=== PATIENT | female | born 1935 | race Caucasian/White ===

== ENCOUNTER 2022-10-03 08:09 | Outpatient (CLI) | payer MEDICARE | END 2022-10-03 23:59 | disposition critical access hospital (66) | LOC: EMS 08:09 | DX: M25.551 Pain in right hip (principal); W06.XXXA Fall from bed, initial encounter; Y92.092 Bedroom in other non-institutional residence as the place of occurrence of the external cause; Z79.01 Long term (current) use of anticoagulants | CPT/HCPCS: A0425; A0429 ==

== ENCOUNTER 2022-10-03 08:26 | Emergency (ER) | payer MEDICARE, OTHER ==
--- NOTE | 2022-10-03 08:47 | ED Physician Documentation ---
History of Present Illness - Stated complaint Stated Complaint: GLF - History obtained from History obtained from: Patient, EMS - Additonal information Additional information: The patient is brought to the emergency department by EMS for chief complaint of ground-level fall and possible right hip pain. She has severe dementia and lives at home place and medics report that staff stated the patient Had an unwitnessed ground-level fall. She had last been seen 15 minutes before, so was not down very long. Medics state the patient seemed to indicate that her right hip might hurt, though the patient denies any pain anywhere right now. Medics also stated they could not get the patient to straighten her leg out so they could not tell if it was shortened or rotated. They have not noticed any head trauma and its not clear whether the patient hit her head or not. She is not anticoagulated. The patient is conversant but difficult to keep on topic. She is apparently still ambulatory according to medics. No other complaints at this time. PD PAST MEDICAL HISTORY - Present Medications Home Medications: Ambulatory Orders Medication Instructions Recorded Confirmed Acetaminophen [Aphen] 325 mg PO TID 10/03/22 10/03/22 Atorvastatin [Lipitor] 20 mg ORAL DAILY 10/03/22 10/03/22 Cyanocobalamin (Vitamin B-12) 1,000 mcg SL DAILY 10/03/22 10/03/22 [Vitamin B-12 (1000 mcg sublingual)] Metoprolol Tartrate [Lopressor] 12.5 mg PO DAILY 10/03/22 10/03/22 Rivaroxaban [Xarelto] 15 mg PO DAILY 10/03/22 10/03/22 Sertraline [Zoloft] 75 mg PO DAILY 10/03/22 10/03/22 - Allergies Allergies/Adverse Reactions: Allergies Allergy/AdvReac Type Severity Reaction Status Date / Time diltiazem Allergy Unknown Verified 10/03/22 09:11 PD ED PE NORMAL - Vitals Vital signs reviewed: Yes - General General: No acute distress, Well developed/nourished, Other (Alert, conversant. Not oriented) - HEENT HEENT: Atraumatic, PERRL, EOMI, Moist mucous membranes - Neck Neck: Supple, no meningeal sign, No bony TTP - Cardiac Cardiac: RRR, No murmur, Strong equal pulses - Respiratory Respiratory: No respiratory distress, Clear bilaterally - Abdomen Abdomen: Soft, Non tender, Non distended - Derm Derm: Normal color, Warm and dry, No rash, Other (No skin trauma) - Extremities Extremities: No deformity, Normal ROM s pain, Other (The patient initially lays in the bed with knees drawn up. However, with gentle coaxing, and able to move her right hip into a straightened position and this does not seem to cause patient any pain. No shortening or rotation. Mild tenderness palpation posterior right hip.) - Neuro Neuro: Other (Alert, moving all 4 extremities. The patient is not oriented at a ll. When she reads her name on her wristband, I ask if that is her name and she states "no".) - Psych Psych: Normal mood, Normal affect Results - Vitals Vitals: Oxygen O2 Source Room air - Rads (name of study) CT head Relevant Findings:: Final report received, See rad report CT pelvis Relevant Findings:: Final report received, See rad report (bilateral hip arthroplasties. No fracture) PD Medical Decision Making - ED course Complexity details: reviewed results, re-evaluated patient, considered differential, d/w patient ED course: Since the patient was a poor historian the fall was not witnessed, I sent patient for CT scan of the head as well as of the hip/pelvis, both of which were negative. The pt was stable for discharge home. Departure - Departure Disposition: 01 Home, Self Care Clinical Impression: Ground-level fall Condition: Stable Instructions: Falls Prevent Move Safe Chair Bed Comments: Anisha's CT scans of the head and hip/pelvis look good. There is no evidence of any broken bones or bleeding in the brain. Anisha has a hip replacement on each side and the hardware looks good. There is no evidence of significant injury from the fall. Discharge Date/Time: 10/03/22 11:13
--- NOTE | 2022-10-03 09:32 | CT Report ---
PROCEDURE: HEAD WO INDICATIONS: fall/hit head/dementia TECHNIQUE: Noncontrast 4.5 mm thick angled axial sections acquired from the foramen magnum to the vertex. For r adiation dose reduction, the following was used: automated exposure control, adjustment of mA and/or kV according to patient size. COMPARISON: None. FINDINGS: Image quality: Patient motion artifact degrades image quality. CSF spaces: Basal cisterns are patent. No extra-axial fluid collections. Ventricles are normal in size and shape. No midline shift. No intracranial masses or hemorrhage. No mass effect. Sharma-white matter interface is normal. There cerebral volume loss for age with resultant ventricular and sulcal prominence. Ther e are periventricular and deep white matter chronic small vessel ischemic changes. Atherosclerotic ca lcifications are noted in the intracranial segments of the bilateral internal carotid arteries. Skull and face: Calvarium and visualized facial bones are intact, without suspicious lesions. Sinuses: Visualized sinuses and mastoids are clear. IMPRESSION: CT head without acute intracranial abnormalities or acute calvarial fractures. Age-related senescent changes and sequela chronic small vessel ischemic disease. Reviewed by: Meet Godinez MD on 10/03/2022 9:30 AM PDT Approved by: Meet Godinez MD on 10/03/2022 9:30 AM PDT Station ID: [id number]
--- NOTE | 2022-10-03 09:46 | CT Report ---
PROCEDURE: PELVIS WO INDICATIONS: fall/R hip pain TECHNIQUE: Noncontrast 3 mm axial sections acquired through the bony pelvis, with coronal and sagittal reformatt ing. For radiation dose reduction, the following was used: automated exposure control, adjustment of mA and/or kV according to patient size. COMPARISON: None. FINDINGS: Image quality: Excellent. Bones: Bilateral total hip replacement. No pericardial hardware fracture or pericardial hardware abel ency to suggest loosening. No pelvic fracture. Degenerative changes in the lower lumbar spine. Soft tissues: No soft tissue abnormality. The visualized bowel is normal. Vasculature has atheroscle rotic calcifications. IMPRESSION: No acute traumatic abnormality of the pelvis or hips. Reviewed by: Aamir Guido on 10/03/2022 8:44 AM ISABEL Approved by: Aamir Guido on 10/03/2022 8:44 AM ISABEL Station ID: [id number]
[2022-10-03 11:14] VITALS: BP 158/111
== END 2022-10-03 11:13 | disposition home or self-care (01) ==
LOC: ED 08:26
DX: Z04.3 Encounter for examination and observation following other accident (principal); W19.XXXA Unspecified fall, initial encounter; Y92.099 Unspecified place in other non-institutional residence as the place of occurrence of the external cause; F03.C0 Unspecified dementia, severe, without behavioral disturbance, psychotic disturbance, mood disturbance, and anxiety; Z79.01 Long term (current) use of anticoagulants; Z79.899 Other long term (current) drug therapy
CPT/HCPCS: 99283; 99284

== ENCOUNTER 2022-10-03 11:12 | Outpatient (CLI) | payer MEDICARE | END 2022-10-03 23:59 | disposition home or self-care (01) | LOC: EMS 11:12 | PROVIDERS: ATTEND Emergency Medicine | DX: R41.0 Disorientation, unspecified (principal) | CPT/HCPCS: A0425; A0428 ==

== ENCOUNTER 2022-12-04 14:28 | Outpatient (CLI) | payer MEDICARE, OTHER | END 2022-12-04 23:59 | disposition critical access hospital (66) | LOC: EMS 14:28 | DX: S00.11XA Contusion of right eyelid and periocular area, initial encounter (principal); W05.0XXA Fall from non-moving wheelchair, initial encounter; Y92.098 Other place in other non-institutional residence as the place of occurrence of the external cause | CPT/HCPCS: A0425; A0429 ==

== ENCOUNTER 2022-12-04 14:49 | Emergency (ER) | payer MEDICARE, OTHER ==
--- NOTE | 2022-12-04 14:56 | ED Physician Documentation ---
PD HPI HEAD INJURY - Stated complaint Stated Complaint: FALL - History obtained from History obtained from: EMS - History of Present Illness Mechanism of head injury: Fell Where head injury occurred: Home Timing - onset: Today Location of injury: Front Quality of pain: Pain, Throbbing Associated symptoms: Other (Advanced dementia with comfort measures only). No: LOC, AMS, Amnesia, Nausea / vomiting, Neck pain, Paresthesias, Seizures, Ear drainage, Nasal drainage Symptoms improve with: Rest Symptoms worsen with: Palpation, Movement Contributing factors: Anticoagulated Similar symptoms before: Has not had sx before Recently seen: Not recently seen - Additional information Additional information: 87-year-old female sitting in her wheelchair appears to have fallen out of her wheelchair onto her forehead. She has a bruise to the forehead and she is on Xarelto. She has advanced dementia and is unable to provide any specific history I was able to glean history from the paramedics who indicate that the fall was unwitnessed and the staff believes the patient fell forward out of her chair. She was not noted to be unconscious or have seizure. Review of Systems Unable to obtain: Dementia PD PAST MEDICAL HISTORY - Present Medications Home Medications: Ambulatory Orders Medication Instructions Recorded Confirmed Acetaminophen [Aphen] 325 mg PO TID 10/03/22 10/03/22 Atorvastatin [Lipitor] 20 mg ORAL DAILY 10/03/22 10/03/22 Cyanocobalamin (Vitamin B-12) 1,000 mcg SL DAILY 10/03/22 10/03/22 [Vitamin B-12 (1000 mcg sublingual)] Metoprolol Tartrate [Lopressor] 12.5 mg PO DAILY 10/03/22 10/03/22 Rivaroxaban [Xarelto] 15 mg PO DAILY 10/03/22 10/03/22 Sertraline [Zoloft] 75 mg PO DAILY 10/03/22 10/03/22 - Allergies Allergies/Adverse Reactions: Allergies Allergy/AdvReac Type Severity Reaction Status Date / Time diltiazem Allergy Unknown Verified 12/04/22 15:04 PD ED PE NORMAL - Vitals Vital signs reviewed: Yes (wide pulse pressure) - General General: No acute distress, Well developed/nourished, Other (says that I do not need to talk to her because people like her dont know anything. ) - HEENT HEENT: PERRL, EOMI, Other (bruising to the right forehead. ) - Neck Neck: Supple, no meningeal sign, Other (mild midline bony tenderness) - Respiratory Respiratory: No respiratory distress - Derm Derm: Normal color, Warm and dry, No rash - Extremities Extremities: No deformity, No edema - Neuro Neuro: dater assembler 2-12 intact, No motor deficit, No sensory deficit, Normal speech Eye Opening: Spontaneous Motor: Obeys Commands Verbal: Confused GCS Score: 14 - Psych Psych: Normal mood, Normal affect Results - Vitals Vitals: Vital Signs - 24 hr 12/04/22 14:59 Temperature 36.4 C L Heart Rate 64 Respiratory 20 Rate Blood Pressure 105/58 L O2 Saturation 94 Oxygen O2 Source Room air - Rads (name of study) CT head Relevant Findings:: Prelim report reviewed (Impression: Atrophy and chronic ischemic change without intracranial hemorrhage or mass effect.), EMP independent interpretation of test CT cervical spine Relevant Findings:: Prelim report reviewed (Impression: Limited exam related to motion artifact, the patient's ability to cooperate with the exam and patient positioning. Within the limits of the exam, no evidence of displaced fracture or traumatic malalignment. Multilevel degenerative disc disease, arthropathy and), Final report received (degenerative spondylolisthesis associated with at l east moderate central stenosis at C6-7) PD Medical Decision Making - ED course Complexity details: reviewed old records, reviewed results, re-evaluated patient, considered differential, d/w patient ED course: 87-year-old female with advanced dementia who is on Xarelto has had a fall bruising her forehead. She is unable to cooperate with history and appears quite anxious. A CT scan of the head and neck are obtained demonstrating no evidence of intracranial hemorrhage. The patient became agitated with the length of the visit and she was administered Zyprexa 2.5 mg sublingual. Departure - Departure Disposition: 01 Home, Self Care Clinical Impression: Concussion Qualifiers: Encounter type: initial encounter Loss of consciousness presence/duration: without LOC Qualified Code(s): S06.0X0A - Concussion without loss of consciousness, initial encounter Condition: Stable Instructions: ED Concussion Follow-Up: Your, doctor [Other] Comments: Anisha, today we did a CT scan of your head with concerns of a possible bleed. We did not find any evidence of intracranial bleeding.
[2022-12-04 15:11] VITALS: BP 105/58; O2SAT 94
--- NOTE | 2022-12-04 17:13 | CT Report ---
PROCEDURE: CT brain without contrast INDICATIONS: 87-year-old female with recent fall, pain, anticoagulation TECHNIQUE: Helical axial CT of the brain was obtained without contrast and reformatted in multiple p lanes. Radiation dose reduction was achieved using automated exposure control or adjustment of mA and /or kV according to patient size. COMPARISON: 10/03/2022 FINDINGS: CSF spaces: Ventricles are appropriate in size and position. No hydrocephalus. Basal cisterns unre markable. Brain: No midline shift. No intracranial masses or hemorrhage. Sharma-white matter interface is norm al. Moderate atrophy and multifocal white matter chronic ischemic change noted. Atherosclerotic vasc ular calcification noted in the cavernous segments of both internal carotid arteries as well as the i ntradural vertebral arteries. Skull and face: Calvarium and skull base are unremarkable without suspicious lesion. Sinuses: Visualized sinuses and mastoids are clear. IMPRESSION: Atrophy and chronic ischemic change without intracranial hemorrhage or mass effect Reviewed by: Ryne Fernandes MD on 12/04/2022 4:11 PM AKDT Approved by: Ryne Fernandes MD on 12/04/2022 4:11 PM AKDT Station ID: [id number]
[2022-12-04] MEDS ORDERED: OLANZapine ODT 5 MG TABLET TL STA (18:00)
--- NOTE | 2022-12-04 18:24 | CT Report ---
PROCEDURE: CT cervical spine INDICATIONS: fall head injury TECHNIQUE: Helical axial CT of the cervical spine was obtained without contrast and reformatted in m ultiple planes. Radiation dose reduction was achieved utilizing automated exposure control or adjus tment of mA and/or kV according to patient size. Study is significantly limited by motion artifact, patient's ability to cooperate with the exam and p ositioning. COMPARISON: None. FINDINGS: Bones: Within the limits of the exam, no evidence of slightly displaced fracture or traumatic malalig nment. There is severe disc space narrowing and hypertrophic facet joints present in the mid to lower cervical spine associated with grade 2 anterior spinal listhesis of C3-4, and grade 1 anterior spina l listhesis C7-T1. Moderate central stenosis C6-7. Soft tissues: Prevertebral soft tissues are normal in thickness. No paravertebral hematomas. No ap ical pneumothoraces. IMPRESSION: Limited exam related to motion artifact, patient's ability to cooperate with the exam and patient pos itioning. 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
== END 2022-12-04 19:48 | disposition home or self-care (01) ==
LOC: EDUNIT# → ED 14:49
DX: S06.0X0A Concussion without loss of consciousness, initial encounter (principal); W05.0XXA Fall from non-moving wheelchair, initial encounter; Z79.01 Long term (current) use of anticoagulants; F03.90 Unspecified dementia, unspecified severity, without behavioral disturbance, psychotic disturbance, mood disturbance, and anxiety
CPT/HCPCS: 70450; 72125; 99284; A9270

== ENCOUNTER 2022-12-04 19:53 | Outpatient (CLI) | payer MEDICARE, OTHER | END 2022-12-04 23:59 | disposition home or self-care (01) | LOC: EMS 19:53 | PROVIDERS: ATTEND Emergency Medicine | DX: S06.0XAA Concussion with loss of consciousness status unknown, initial encounter (principal); S00.11XA Contusion of right eyelid and periocular area, initial encounter; W05.0XXA Fall from non-moving wheelchair, initial encounter; R41.0 Disorientation, unspecified | CPT/HCPCS: A0425; A0428 ==

== ENCOUNTER 2023-01-18 08:00 | Outpatient (CLI) | payer MEDICARE, OTHER ==
--- NOTE | 2023-01-18 13:59 | XRAY Report ---
PROCEDURE: Knee 4 View BILAT INDICATIONS: BILAT KNEE PAIN TECHNIQUE: 3 views of the lateral knee(s) were acquired. COMPARISON: None. FINDINGS: Bones: No fractures or dislocations. No suspicious bony lesions. Severe tricompartmental degenera tive changes of both knees, worse on the right. On the right there is moderate medial joint space maureen rowing and on the left there is mild medial joint space narrowing. Tricompartmental osteophytes are p resent bilaterally. Degenerative changes of the patellofemoral joint worse on the left with loss of t he joint space of the lateral facet on the left. Soft tissues: No knee joint effusion. No suspicious soft tissue calcifications or masses. Atheroscl erotic calcifications in the femoral vasculature. IMPRESSION: Tricompartmental degenerative changes of both knees consistent with osteoarthritis. Reviewed by: Aamir Guido on 01/18/2023 1:58 PM PDT Approved by: Aamir Guido on 01/18/2023 1:58 PM PDT Station ID: [id number]
== END 2023-01-18 23:59 | disposition home or self-care (01) ==
LOC: DI.WOS 08:00
PROVIDERS: ATTEND Physician Assistant Surgical
DX: M17.0 Bilateral primary osteoarthritis of knee (principal)